=== PATIENT | male | born 1965 | race Caucasian/White ===

== ENCOUNTER 2021-03-05 15:26 | Observation (INO) | payer OTHER ==
[~2021-03-05] VITALS: Ht 175.3 cm; Wt 63.5 kg
[2021-03-05 15:31] VITALS: BP 113/93
--- NOTE | 2021-03-05 16:08 | EKG ---
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
[2021-03-05 16:17] LABS: EOSINOPHILS 0.5 % (0.0-3.0); MCV 77.6 fL (80.0-100.0); RBC 4.23 mil/uL (4.50-6.00); WBC 5.1 thou/uL (4.0-11.0)
[2021-03-05 16:19] LABS: ABSOLUTE NEUTROPHILS 3.7 thou/uL (1.4-8.2); BASOPHILS 1.6 % (0.0-2.0); HEMATOCRIT 32.8 % (42.0-52.0); HEMOGLOBIN 9.9 gm/dL (14.0-18.0); LYMPHOCYTES 19.1 % (24.0-44.0); MCH 23.3 pg (26.0-34.0); MONOCYTES 5.9 % (1.0-8.0); PLATELET COUNT 222 thou/uL (150-400); POLYS 72.9 % (36.0-66.0); RDW 25.7 % (10.5-14.5)
[2021-03-05 16:25] LABS: ANION GAP 7 mmol/L (7-16); BUN 52 mg/dL (7-18); CALCIUM 8.7 mg/dL (8.5-10.1); CHLORIDE 103 mmol/L (98-107); CO2 32 mmol/L (21-32); CREATININE 1.7 mg/dL (0.7-1.3); GLUCOSE 116 mg/dL (74-106); POTASSIUM 3.8 mmol/L (3.5-5.1); SODIUM 142 mmol/L (136-145)
[2021-03-05 16:35] LABS: ALBUMIN 2.8 g/dL (3.4-5.0); SGOT 54 U/L (15-37); SGPT 84 U/L (16-63); TOTAL BILIRUBIN 1.2 mg/dL (0.2-1.0); TOTAL PROTEIN 7.4 g/dL (6.4-8.2); TROPONIN-I <0.06 ng/mL (<0.06)
[2021-03-05 17:07] LABS: POLYCHROMASIA 2+
[2021-03-05 17:08] LABS: ANISOCYTOSIS SLIGHT; SCHISTOCYTES FEW; TARGET CELLS FEW
[2021-03-05 19:08] VITALS: BP 116/88
[2021-03-05 19:30] VITALS: BP 111/88
[2021-03-06 04:00] VITALS: BP 101/79
--- NOTE | 2021-03-06 04:01 | NUR ---
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
[2021-03-06 05:25] LABS: HEMATOCRIT 34.2 % (42.0-52.0); HEMOGLOBIN 10.3 gm/dL (14.0-18.0); MCH 23.4 pg (26.0-34.0); MCHC 30.1 g/dL (28.0-37.0); RBC 4.39 mil/uL (4.50-6.00); RDW 24.9 % (10.5-14.5); WBC 4.3 thou/uL (4.0-11.0)
[2021-03-06 05:31] LABS: CALCIUM 8.2 mg/dL (8.5-10.1); CREATININE 1.7 mg/dL (0.7-1.3)
[2021-03-06 05:42] LABS: URINE BILIRUBIN NEGATIVE (Negative); URINE BLOOD TRACE (Negative); URINE CLARITY CLEAR; URINE COLOR YELLOW; URINE GLUCOSE-RANDOM* NEGATIVE (Negative); URINE KETONES NEGATIVE (Negative); URINE LEUKOCYTES-REFLEX NEGATIVE (Negative); URINE NITRITE-REFLEX NEGATIVE (Negative); URINE PROTEIN (DIPSTICK) NEGATIVE (Negative)
[2021-03-06 06:00] LABS: AMP/METHAMP Negative (Negative); BARBITURATES Negative (Negative); BENZODIAZEPINES Negative (Negative); COCAINE Negative (Negative); METHADONE Negative (Negative); OPIATES Negative (Negative); PCP Negative (Negative)
[2021-03-06 08:00] VITALS: BP 96/68
[2021-03-06] MEDS ORDERED: GABAPENTIN 100100 MG PO (09:44)
[2021-03-06] MEDS ORDERED: LISINOPRIL10 MG PO (09:44)
[2021-03-06] MEDS ORDERED: CARVEDILOL12.5 MG PO (09:44)
[2021-03-06] MEDS ORDERED: IMDUR 30 MG TAB30 M1 PO (09:44)
[2021-03-06] MEDS ORDERED: ELIQUIS5 MG PO (09:44)
--- NOTE | 2021-03-06 09:57 | NUR ---
WOUND CONSULT; HERE TODAY TO ASSESS THE LOWER EXT(S). THE RN TODAY ASSESSMENT REVEALED NO WOUNDS ONLY SCARS. I WILL CANCEL THE CONSULT. RECONSULT IF NECCESSARY. DISCUSSED WITH RN
[2021-03-06 10:31] VITALS: BP 96/68
--- NOTE | 2021-03-06 15:10 | NUR ---
THIS MORNING PATIENT DID NOT COMPLAIN OF ANY PAIN WHEN ASKED, ONLY "UNCOMFORTABLE" TO HIS BLE (PREVIOUS INJURY). I ATTEMPTED TO GIVE PATIENT HIS MORNING MEDICATIONS, WHICH HE ASKED TO TAKE AFTER BREAKFAST. HE APPEARED TO HAVE TAKEN HIS MEDICATIONS. PT LATER DISCOVERED ALL OF THE PILLS SCATTERED IN HIS BED. SHE PLACED THEM ON A NAPKIN AND ALERTED THIS RN. PATIENT THEN PROCEEDED TO THROW AWAY THE MEDICATIONS IN THE TRASH. WHEN QUESTIONED HE DENIED ACTION AND STATED THAT THE OTHER GIRL JUST THREW THEM IN THE TRASH. AFTER THE PHYSICIAN SPOKE WITH HIM ABOUT HIS DISCHARGE (THIS RN WAS PRESENT), PATIENT WAS AGREEABLE. ONCE PHYSICIAN LEFT THE ROOM HE BEGAN TO ARUGE ABOUT HIS DISCHARGE PLAN, STATING HE "STILL HAS SWELLING IN MY LEGS AND CHEST PAIN." HE DID NOT BRING THIS UP WITH THE PHSYCIAN. I EXPLAINED TO THE PHYSICIAN PATIENT'S COMPLAINTS. NO FURTHER ORDERS WERE PLACED AND TO PROCEED WITH DISCHARGE. PATIENT ALL DAY HAS BEEN SLEEPING AND WHEN TALKED TO WOULD APPEAR TO FALL ASLEEP DURING CONVERSATION. NO OBJECTIVE S/S OF PAIN. WHEN HE WOULD OCCASIONALLY COMPLAIN OF CHEST PAIN HE WOULD DECLINE TYLEOL ORDERED BY THE PHYSICIAN. HE STATED THIS MADE IT WORSE AT HOME. I RELAYED INFORMATION TO PHYSICIAN, NO FURTHER ORDERS, PROCEED WITH DISCHARGE. PATIENT REFUSED TO SIGN DISCHARGE PAPERS UNTIL HIS MOTHER ARRIVED TO PROVIDE TRANSPORTATION HOME.
== END 2021-03-06 17:43 | disposition home or self-care (01) ==
LOC: ER 15:26 → 2N 18:42 → EROBS 18:42 → 2N 19:49
PROVIDERS: Emergency Medicine; ADMIT Internal Medicine; ATTEND Internal Medicine
DX: R07.89 Other chest pain (principal); M79.7 Fibromyalgia; I48.0 Paroxysmal atrial fibrillation; I13.0 Hypertensive heart and chronic kidney disease with heart failure and stage 1 through stage 4 chronic kidney disease, or unspecified chronic kidney disease; N18.9 Chronic kidney disease, unspecified; I50.9 Heart failure, unspecified; E78.5 Hyperlipidemia, unspecified; I25.10 Atherosclerotic heart disease of native coronary artery without angina pectoris; I25.2 Old myocardial infarction; G89.29 Other chronic pain; Z79.899 Other long term (current) drug therapy

== ENCOUNTER 2021-04-03 18:50 | Inpatient (IN) | payer OTHER ==
[~2021-04-03] VITALS: Ht 177.8 cm; Wt 62.9 kg
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
[~2021-04-03 18:50] MED LIST: CARVEDILOL12.5 MG PO; ELIQUIS5 MG PO; GABAPENTIN 100100 MG PO; IMDUR 30 MG TAB30 M1 PO; LISINOPRIL10 MG PO
[2021-04-03 18:59] VITALS: BP 110/80
[2021-04-03 19:59] LABS: HEMATOCRIT 30.7 % (42.0-52.0); HEMOGLOBIN 9.5 gm/dL (14.0-18.0); MCH 23.4 pg (26.0-34.0); MCHC 30.8 g/dL (28.0-37.0); PLATELET COUNT 395 thou/uL (150-400); RBC 4.04 mil/uL (4.50-6.00); RDW 25.1 % (10.5-14.5); WBC 6.4 thou/uL (4.0-11.0)
[2021-04-03 20:17] LABS: CALCIUM 8.4 mg/dL (8.5-10.1); CREATININE 1.7 mg/dL (0.7-1.3); POTASSIUM 4.3 mmol/L (3.5-5.1)
[2021-04-03 20:21] LABS: ALBUMIN 2.6 g/dL (3.4-5.0); TOTAL BILIRUBIN 1.2 mg/dL (0.2-1.0); TOTAL PROTEIN 7.6 g/dL (6.4-8.2); TROPONIN-I 0.06 ng/mL (<0.06)
[2021-04-03 20:26] LABS: ABSOLUTE NEUTROPHILS 4.7 thou/uL (1.4-8.2)
[2021-04-03 20:27] LABS: ANISOCYTOSIS 2+; HYPOCHROMASIA 1+
[2021-04-03] MEDS ORDERED: FUROSEMIDE 20 M20 M1 PO (22:44)
[2021-04-04 06:49] VITALS: BP 108/82
--- NOTE | 2021-04-04 07:14 | EKG ---
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: jesusita : 1965 Requested By: Steven Youssef Order Number: [id number] MD: Robby Park Measurements Intervals [place] Rate: 97 P: 75 [place]: 175 QRS: -64 QRSD: 133 T: 115 QT: 393 QTc: 500 Interpretive Statements Sinus rhythm Ventricular premature complex Ventricular preexcitation(WPW) Compared to ECG 03/05/2021 15:31:04 Ventricular premature complex(es) now present Left bundle-branch block no longer present Electronically Signed On 04-04-2021 7:14:17 CDT by Robby Park [email or web address] <ELECTRONICALLY SIGNED> By: Robby Park MD, [facility] 04/04/21713 56 56 Robby Park MD, [facility] /EPI
[2021-04-04 07:30] VITALS: BP 108/82
--- NOTE | 2021-04-04 08:00 | NUR ---
PT ADMITTED TO 3W, ALERT AND ORIENTED, PT EXPRESSES HIS GOAL IS TO GET THE WATER OFF HIS BODY. PT HAS A HARD TIME ANSWERING DIRECT QUESTIONS, HOWEVER PT DOES ANSWER SIMPLE STATEMENT QUESTION, POOR HISTORIAN. MOTHER ALEXI HELPED PT ANSWER ADMISSION QUESTIONS.
[2021-04-04 08:24] VITALS: BP 101/82
[2021-04-04 10:32] LABS: HEMOGLOBIN 9.8 gm/dL (14.0-18.0)
[2021-04-04 10:34] LABS: HEMATOCRIT 32.2 % (42.0-52.0); MCH 23.4 pg (26.0-34.0); MCHC 30.4 g/dL (28.0-37.0); MCV 77.2 fL (80.0-100.0); RBC 4.17 mil/uL (4.50-6.00); RDW 24.8 % (10.5-14.5); WBC 5.3 thou/uL (4.0-11.0)
[2021-04-04 10:45] LABS: ANION GAP 10 mmol/L (7-16); BUN 52 mg/dL (7-18); CALCIUM 8.3 mg/dL (8.5-10.1); CHLORIDE 102 mmol/L (98-107); CO2 28 mmol/L (21-32); GLUCOSE 215 mg/dL (74-106); POTASSIUM 4.5 mmol/L (3.5-5.1); SODIUM 140 mmol/L (136-145); TROPONIN-I 0.06 ng/mL (<0.06)
[2021-04-04 10:56] LABS: CHOLESTEROL 185 mg/dL (<200); HDL CHOLESTEROL 55 mg/dL (>40); LDL CHOLESTEROL 113 mg/dL (<100); TC:HDL 3.4 Ratio (Not establshd); TRIGLYCERIDE 85 mg/dL (<150); VLDL 17 mg/dL (<40)
--- NOTE | 2021-04-04 14:48 | 2DMMODE ---
[address] [address] 2 D/M-MODE ECHOCARDIOGRAM Name: PAM DEGROOT Room #: 363-P ADM IN M.R.#: [id number] Admission: 04/03/21 Attend Phys: Lorenzo Fink MD Discharge: Date of : 67 Report #: [id number] THIS REPORT FOR: cc: FAM - No family physician/PCP FAM - No family physician/PCP Bruno Dockery MD ~ APPROVED REPORT Study performed: 04/04/2021 13:09:50 EXAM: Comprehensive 2D, Doppler, and color-flow Echocardiogram Patient Location: Bedside Room #: 363 Status: routine BSA: 1.76 HR: 88 bpm BP: 101/82 mmHg Rhythm: Atrial Fibrillation Other Information Study Quality: Good Indications Congestive Heart Failure Atrial Fibrillation CAD Cardiomyopathy Chest Pain 2D Dimensions IVC: 35.00 mm Volumes Left Atrial Volume (Systole) LA ESV Index: 71.00 mL/m2 Tricuspid Valve PA Pressure: 47.00 mmHg Left Ventricle Left ventricle is dilated. There is severe global hypokinesis of the left ventricle. There is normal left ventricular wall thickness. Left ventricular ejection fraction is severely decreased. LVEF is 10-15%. Moderate diastolic dysfunction is present (pseudonormal [address] [address] 2 D/M-MODE ECHOCARDIOGRAM Name: PAM DEGROOT Room #: 363-P ADM IN M.R.#: [id number] Admission: 04/03/21 Attend Phys: Lorenzo Fink, Discharge: Date of : 67 Report #: [id number] filling). Right Ventricle Right ventricle is dilated. Right ventricle is hypokinetic. Atria Left atrium is dilated. Right atrium is dilated. Aortic Valve The aortic valve is normal in structure. The Aortic valve is sclerotic. Mild aortic regurgitation. There is no aortic valvular stenosis. Mitral Valve The mitral valve is normal in structure. Moderate to severe mitral regurgitation No evidence of mitral valve stenosis. Tricuspid Valve The tricuspid valve is normal in structure. There is moderate tricuspid regurgitation. Estimated PAP 47 mmHg. There is moderate pulmonary hypertension. Pulmonic Valve The pulmonary valve is normal in structure. Mild pulmonic regurgitation. Great Vessels The aortic root is normal in size. IVC is dilated and collapses <50% with inspiration. Pericardium There is no pericardial effusion. <Conclusion> Left ventricle is dilated. Left ventricular ejection fraction is severely decreased. Right ventricle is dilated. Right ventricle is hypokinetic. Left atrium is dilated. Right atrium is dilated. Mild aortic regurgitation. [facility] [address] [place] [address] 2 D/M-MODE ECHOCARDIOGRAM Name: PAM DEGROOT Room #: 363-P ADM IN M.R.#: [id number] Admission: 04/03/21 Attend Phys: Lorenzo Fink, Discharge: Date of : 67 Report #: [id number] Moderate to severe mitral regurgitation There is moderate tricuspid regurgitation. Estimated PAP 47 mmHg. <ELECTRONICALLY SIGNED> By: Bruno Dockery MD 04/04/21 1447 46 Bruno Dockery MD /INF
[2021-04-04 15:34] VITALS: BP 110/83
[2021-04-04 18:13] LABS: AMP/METHAMP Negative (Negative); BARBITURATES Negative (Negative); BENZODIAZEPINES Negative (Negative); COCAINE Negative (Negative); METHADONE Negative (Negative); OPIATES POSITIVE (Negative); PCP Negative (Negative)
[2021-04-04 19:52] VITALS: BP 104/67
[2021-04-05 08:34] LABS: URINE BILIRUBIN NEGATIVE (Negative); URINE BLOOD NEGATIVE (Negative); URINE CLARITY CLEAR; URINE COLOR YELLOW; URINE GLUCOSE-RANDOM* NEGATIVE (Negative); URINE KETONES NEGATIVE (Negative); URINE LEUKOCYTES NEGATIVE (Negative); URINE NITRITE NEGATIVE (Negative); URINE PROTEIN (DIPSTICK) NEGATIVE (Negative)
[2021-04-05 10:45] LABS: HEMOGLOBIN 8.5 gm/dL (14.0-18.0); WBC 4.8 thou/uL (4.0-11.0)
[2021-04-05 10:47] LABS: HEMATOCRIT 28.4 % (42.0-52.0); MCH 23.3 pg (26.0-34.0); MCV 77.5 fL (80.0-100.0); RBC 3.67 mil/uL (4.50-6.00); RDW 24.9 % (10.5-14.5)
[2021-04-05 11:33] LABS: CALCIUM 8.3 mg/dL (8.5-10.1); CREATININE 2.1 mg/dL (0.7-1.3); MAGNESIUM 2.5 mg/dL (1.8-2.4); POTASSIUM 4.3 mmol/L (3.5-5.1)
[2021-04-05 11:36] VITALS: BP 95/61
--- NOTE | 2021-04-05 13:35 | NUR ---
INITIAL ASSESSMENT: SW reviewed chart and spoke with nursing and attending physician. Pt was admitted from home due to chest pain. Pt is on IV abx and IV lasix. SW met with pt at bedside. Introduced role of SW. Pt is alert/orientated x 4. Pt reports he lives at home with his Mother in [place]. Prior to admission, pt was independent with ADLs. Pt has a cane and walker to use. 5 steps to enter the home and 5 steps inside. Pt states that he and his mother help take care of each other. Pt states that he has lost weight and has become weak. Pt's PCP is Dr. Rosamaria Tellez. No hx of services or post-acute placement. Pt states that he is interested in rehab, to regain strength. Pt is hoping to be able to return to work in the future. SW discussed options for rehab. Pt agreeable with [facility]. SW notified [facility] rehabilitation services coordinator of new referral. SW is following to assist as needed with discharge planning.
[2021-04-05 15:46] VITALS: BP 110/76
--- NOTE | 2021-04-05 18:20 | NUR ---
RN ASSUMED PT'S CARE AT 0700AM.PT IS A&OX3 ( PERSON, PLACE AND TIME ), PT IS ON ROOM AIR , PT'S VS ARE STABLE AT DAY SHIFT, PT IS CONTINUING IV ABX, PT DENIES PAIN AND SOB BY THIS TIME.PT GETS UP TO CHAIR WITH ASSIST ,
[2021-04-05 21:11] VITALS: BP 104/63
[2021-04-06 00:06] LABS: HIV ANTIBODY Non Reactive (Non Reactive)
[2021-04-06 04:16] VITALS: BP 100/73
[2021-04-06 06:11] LABS: HEMATOCRIT 28.5 % (42.0-52.0); HEMOGLOBIN 8.8 gm/dL (14.0-18.0); MCH 23.8 pg (26.0-34.0); MCHC 30.8 g/dL (28.0-37.0); MCV 77.3 fL (80.0-100.0); RBC 3.69 mil/uL (4.50-6.00); RDW 24.2 % (10.5-14.5); WBC 4.7 thou/uL (4.0-11.0)
--- NOTE | 2021-04-06 06:27 | NUR ---
Pt. slept fair during the night. Woke up around 0100 and wanted to walk around. Ambulated with assist to bathroom. Tolerating room air well. Denies any pain. Requested for turkey sandwich this am. Voided per urinal. Bed alarm on for safety. Pt. is impulsive.
[2021-04-06 06:28] LABS: MAGNESIUM 2.4 mg/dL (1.8-2.4); POTASSIUM 3.8 mmol/L (3.5-5.1)
[2021-04-06 07:34] VITALS: BP 104/66
--- NOTE | 2021-04-06 11:01 | NUR ---
DISCHARGE NOTE: KARINA reviewed chart and spoke with nursing and attending physician. Pt is on IV abx and IV lasix. SW discussed case with [facility] facility rehab director who states they are able to accept pt today. Auth obtained from [place]. Repeat COVID test ordered. Attending physician to complete discharge orders/summary. Pt to move to [facility] pending COVID test results. KARINA is following to finalize discharge.
[2021-04-06] MEDS ORDERED: TORSEMIDE20 MG PO (13:47)
[2021-04-06] MEDS ORDERED: UNASYN 3 GM VIAL3 G1 IM (13:49)
[2021-04-06 14:24] VITALS: BP 104/66
--- NOTE | 2021-04-06 20:02 | NUR ---
RN ASSUMED PT'S CARE AT 0700-1600PM, PT IS A&OX4, PT IS CONTINUING IV ABX, PT'S VS ARE STABLE, PT DENIES PAIN AND SOB, BUT PT STILL HAS WEALNESS, RN RECEIVED ORDER TO DC PT TO [facility] , RN HAS GIVING REPORT , PT WAS SENT TO [facility] ABOUT 1550PM.
[2021-04-06 21:06] LABS: SYPHILIS AB Non Reactive (Non Reactive)
[2021-04-08 04:50] LABS: T-SPOT.TB Negative
== END 2021-04-06 15:44 | DRG 291 ==
LOC: ER 18:50 → 3W 22:14 → EROBS 22:14 → 3W 04-04 07:57
PROVIDERS: Emergency Medicine; Nurse Practitioner; Specialist; ADMIT Internal Medicine; ATTEND Internal Medicine
DX: I13.0 Hypertensive heart and chronic kidney disease with heart failure and stage 1 through stage 4 chronic kidney disease, or unspecified chronic kidney disease (principal); J18.9 Pneumonia, unspecified organism; I50.23 Acute on chronic systolic (congestive) heart failure; N17.9 Acute kidney failure, unspecified; G89.29 Other chronic pain; I48.0 Paroxysmal atrial fibrillation; I25.10 Atherosclerotic heart disease of native coronary artery without angina pectoris; N18.9 Chronic kidney disease, unspecified; I25.5 Ischemic cardiomyopathy; M21.371 Foot drop, right foot; M21.331 Wrist drop, right wrist; E78.5 Hyperlipidemia, unspecified; M79.7 Fibromyalgia; I34.0 Nonrheumatic mitral (valve) insufficiency; D64.9 Anemia, unspecified; R53.81 Other malaise; Z82.49 Family history of ischemic heart disease and other diseases of the circulatory system; Z91.14 Patient's other noncompliance with medication regimen; Z86.73 Personal history of transient ischemic attack (TIA), and cerebral infarction without residual deficits; I25.2 Old myocardial infarction; Z20.822 Contact with and (suspected) exposure to COVID-19
CPT/HCPCS: 10080

== ENCOUNTER 2021-04-06 11:31 | Inpatient (IN) | payer OTHER ==
[~2021-04-06] VITALS: Ht 175.3 cm; Wt 64.4 kg
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
[~2021-04-06 11:31] MED LIST changes: +FUROSEMIDE 20 M20 M1 PO
[2021-04-06] MEDS ORDERED: TORSEMIDE20 MG PO (13:47)
[2021-04-06] MEDS ORDERED: UNASYN 3 GM VIAL3 G1 IM (13:49)
[2021-04-06 15:45] VITALS: BP 112/83
--- NOTE | 2021-04-06 15:45 | NUR ---
Chart review. Cm tried to visit with him prior to going up to acute rehab this afternoon, unable to visit with him on 3w r/t he is resting. He lives at home with his mom shy, they help each other if needed. 5 steps to enter the home, no stairs inside must do. manage own medication. Has cane and walker. No rehab or hh in past. PCP Dr Rosamaria Tellez. Will cont. following as needed for dc needs from acute rehab.
--- NOTE | 2021-04-06 18:20 | NUR ---
Pt arrived to floor from 3west per at 1545 in stable condition.Admission hx,assessment and careplan completed.Evening meds given as ordered and well tolerated.Pt ate 100% at dinner.Pt's mom called but phone not going through. Pt sined amanda admission papers.Will continue to monitor.
[2021-04-06 20:06] VITALS: BP 117/77
[2021-04-07 06:05] LABS: MCV 77.3 fL (80.0-100.0)
[2021-04-07 06:07] LABS: HEMATOCRIT 29.4 % (42.0-52.0); MCH 23.6 pg (26.0-34.0); MCHC 30.5 g/dL (28.0-37.0); RBC 3.81 mil/uL (4.50-6.00); RDW 25.1 % (10.5-14.5); WBC 4.9 thou/uL (4.0-11.0)
[2021-04-07 06:21] LABS: CREATININE 1.9 mg/dL (0.7-1.3); POTASSIUM 3.8 mmol/L (3.5-5.1)
[2021-04-07 06:47] LABS: FOLIC ACID 14.6 ng/mL (8.6-58.9)
[2021-04-07 08:00] VITALS: BP 127/92
--- NOTE | 2021-04-07 17:40 | NUR ---
ASSUMED CARE AT 0700. ALERT AND ORIENTATED X 4. DENIES ANY PAIN. UP WITH MOD ASSIST USING THE WALKER. DIURESING ADEQ. LAST BM 04/06. APPETITE GOOD. 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 GIVEN IV UNASYN. PARTICIPATED WITH THERAPY AND PROGRESSING TOWARDS GOAL. TOLERATING MEDS WITH WATER. CONT TO MONITOR.
[2021-04-07 20:07] VITALS: BP 108/72
--- NOTE | 2021-04-07 23:42 | NUR ---
PT ASSESSMENT COMPLETED AND VSS. MEDS GIVEN ORDERED AND WELL TOLERATED. FALL PRECAUTIONS IN PLACE. IV ANTIBIOTICS GIVEN ORDERED. ASST WITH REPOSITION FOR COMFORT. UP TO THE BATHROOM WITH ASST/GAIT/WALKER. SAT WNL ON RA. SLEEPING WELL. WILL CONTINUE TO MONITOR FREQUENTLY.
[2021-04-08 07:27] VITALS: BP 117/88
--- NOTE | 2021-04-08 14:14 | NUR ---
ASSUMED CARE AT 0700. ALERT AND ORIENTATED X 3. REPORTED HAVING TUMMY UPSET DUE TO GETTING HIS 0600 MEDS ON AN EMPTY STOMACH. HE HAD LOOSE SOFT STOOL TODAY AND WAS UNHAPPY TO GET HIMSELF SOILED. UP WITH SBA TO BATHROOM. DIURESING ADEQ. APPETITE GOOD. PARTICIPATED WITH THERAPY AND PROGRESSING TOWARDS GOAL. IV UNASYN GIVEN SCHEDULED.
[2021-04-08 19:28] VITALS: BP 119/70
--- NOTE | 2021-04-09 00:15 | NUR ---
PT ALERT AND ORIENTED X 3. RIGHT SIDED WEAKNESS FROM OLD CVA. LFA SL INFILTRATED. NEW SALINE LOCK INSERTED IN RFA. PT INCONT OF URINE AND STOOL. PT REFUSED GABAPENTIN AT HS. STATED IT MAKES HIM CONFUSED. PT CALLS OUT FREQUENTLY FOR VARIOUS THINGS. REQUIRES A LOT OF ATTENTION. BED ALARM ON FOR SAFETY. PT HAS BEEN AWAKE ALL NIGHT SO FAR.
[2021-04-09 07:15] VITALS: BP 112/93
--- NOTE | 2021-04-09 13:23 | NUR ---
Nutrition: pt admitted with chest pain, cavitary PNA and late effect CVA with residual right hemiparesis. RD received consult stating poor intake. Pt is eating most of all meals and good appetite is documented by nsg. No recent weight loss. Vitamin D status pending. Obtained food preferences and instructed pt on meal ordering as desired. Low nutrition risk.
--- NOTE | 2021-04-09 13:44 | NUR ---
ASSUMED CARE AT 0700. DID NOT SLEEP TOO WELL LAST NIGHT. ALERT AND ORIENTATED X 3. PT HAS QUESTIONS AND CONCERNS REGARDING BP MEDS, EDUCATION GIVEN. DENIES ANY PAIN. 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 SPOKE TO JAMES JONES REGARDING INSOMNIA AND PT REFUSING TO TAKE HIS GABAPENTIN THIS MORNING. PARTICIPATING WITH THERAPY. GIVEN IV ANTIBIOTICS SCHEDULED.
[2021-04-09 19:45] VITALS: BP 122/94
--- NOTE | 2021-04-09 23:48 | NUR ---
PT ALERT AND ORIENTED X 4. AMB TO BR WITH WALKER AND ASSIST X 1. HAVING LOOSE STOOLS. PT STATED HE HAS HAD 4 LOOSE STOOLS TODAY. RFA SL INTACT AND PATENT. PT C/O STOMACH DISCOMFORT. BED ALARM ON FOR SAFETY. PT CHECKED ON HOURLY ROUNDS.
[2021-04-10 08:25] VITALS: BP 120/87
--- NOTE | 2021-04-10 11:45 | NUR ---
PT ALERT AND ORIENTED TIMES FOUR. VSS. PT DENIES PAIN/SOA. PT WORKED WELL WITH PT/OT TODAY. PT TOLERATES MEDS AND MEALS. PT MOM AT BESIDE THIS MORNING. PT SLOWLY PROGRESSING TOWRADS POC GOALS.
--- NOTE | 2021-04-10 13:26 | NUR ---
Team meeting, recommendation: EF 10% noted per chart. S/S of anxiety and depression reported from neuropsychic. 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 Will sometimes refuse to take his medication. needs right AFO, spinning frame changer to eval. Need assist with medication and finances. DC 04/13/21 nurse only r/t Medicaid. [facility] will start soon after dc home.
[2021-04-10 19:19] VITALS: BP 110/74
--- NOTE | 2021-04-11 02:39 | NUR ---
ASSESSMENT: PT REMAIN ALERT AND ORIENT TIMES FOUR. C/O NOT BEING ABLE TO USE THE URINAL IN BED AND A NEED TO STAND ON THE SIDE OF THE BED WITH WALKER TO URINATE. UP WITH ASSISTANCE TIMES TWO TO THE BR. NO BM THIS SHIFT. VSS, AFEBRILE. RIGHT HAND WEAK. SLOW PROGRESS TOWARDS DC GOALS, WILL CONTINUE TO MONITOR.
--- NOTE | 2021-04-11 15:53 | NUR ---
Message left for pt's mother Regine regarding pt's need for assist with medications/finances at dc. [facility] contacted to see if the pt is on service with them and will need a request for increased [facility] hours or if he is a new referral.
--- NOTE | 2021-04-11 16:21 | NUR ---
PT RESTING IN BED FOR MAJORITY OF SHIFT. HALF-HEARTEDLY WORKED WITH PT/OT. PT CONTINUES TO REFUSE MEDS/TREATMENTS AND BE ARGUMENTATIVE AND AGITATED WITH STAFF. PT AFEBRILE, ADEQUATE UOP, NO BM, APROPRIATE APPETITE (NEW ORDERS GIVEN FROM DIETARY). PT AND MOTHER HAVE BEEN THOUROUGHLY UPDATED AND EDUCATED ON PT CONDITION AND POC. PT SLOWLY PROGRESSING TOWARDS POC.
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
[2021-04-11 18:16] VITALS: BP 113/77
--- NOTE | 2021-04-12 02:22 | NUR ---
ASSUMED CARE AT 1900 OF 04/11. PATIENT IS A&OX4. CONTINUES TO BE ARGUMENTATIVE W/ STAFF. REQUESTED FOR HS PILLS TO BE ADMINISTERED EARLY SO HE CAN GOT TO BED EARLY. PERIPHERAL IV WAS DISCONTINUED DURING DAY SHIFT, NOW RECEIVING ORAL ANTIBIOTIC. RECEIVED SECOND DOSE OF ORAL ANTIBIOTICS DURING THIS SHIFT. NO S/S OF ADVERSE REACTION TO MEDICATION REPORTED OR NOTED.CURRENTLY SLEEPING IN BED, BED ALARM ON AND CALL LIGHT W/IN REACH. WILL CONTINUE TO MONITOR.
[2021-04-12 06:07] VITALS: BP 109/75
--- NOTE | 2021-04-12 08:18 | NUR ---
PT CRYING THIS AM AND STATED HIS BACK, ARMS, AND RT CHEST HURTS TODAY. PT STATED THE PAIN FEELS LIKE A CRAMPING. PT STATED HE WORKED TOO HARD YESTERDAY. PT WORKING WITH OT AND THEN ST. PT DIDN'T WANT TO DO ANYMORE THERAPY DUE TO HAVING PAIN AND FEELING TIRED. PT STATED HE HAS BEEN HURTING SINCE YEARLY THIS AM AND GOT UP AND DIDN'T GET MUCH SLEEP AND HE STATED HE NEEDS TO SLEEP. PT STATED THE PAIN FEELS LIKE SOMEONE IS BEATING HIS BACK WITH A BAT AND HE WANTED A MESSAGE. THIS INSURANCE CLAIMS PROCESSOR GAVE HIM A SMALL MESSAGE TO RT SHOULDER AREA. ADM TORSEMIDE 20MG PO FOR COMPLAINTS OF SWELLING TO HIS ABD AND ALSO PT HAS TRACE EDEMA TO HIS FEET. PT WANTS SOMEONE TO CLIP HIS TOENAILS AND FINGER NAILS. PT FINGER NAILS DOESN'T NEED TRIMMED. PT HAS BRIEF ON. PT DID EAT 100% OF BREAKFAST AND STATED THAT IT WAS GOOD. PT STATED HE WANTED TO TAKE HIS ELIQUIS RIGHT NOW TO HELP PREVENT BLOOD CLOTS.
--- NOTE | 2021-04-12 09:00 | NUR ---
PT UP TO BATHROOM AND HAD A SOFT STOOL. PT WANTING TO PUT LOTION ON HIS BUTTOCKS FROM SCRATCHING. APPLIED LOTION TO BACK. MENTIONED TO PT WE WILL GET HIM SOMETHING FOR PAIN, HE STATED TYLENOL DID HELP, BUT HE STATED HE WILL TAKE A ASA 81MG FOR PAIN. PT REFUSED TYLENOL THIS AM. TOLD ZAID JONES THAT HE DIDN'T HAVE ANYTHING FOR PAIN. PT ALSO REFUSED AM LABS THIS AM.
--- NOTE | 2021-04-12 12:21 | NUR ---
PT ALLOWED LAB TO COME IN AND DRAW HIS BLOOD.
[2021-04-12 12:36] LABS: HEMATOCRIT 31.4 % (42.0-52.0); HEMOGLOBIN 9.4 gm/dL (14.0-18.0); MCH 23.2 pg (26.0-34.0); MCHC 29.9 g/dL (28.0-37.0); MCV 77.8 fL (80.0-100.0); RBC 4.04 mil/uL (4.50-6.00); RDW 25.1 % (10.5-14.5); WBC 7.7 thou/uL (4.0-11.0)
--- NOTE | 2021-04-12 12:45 | NUR ---
ADM DIFLOFENAC CREAM TO BACK FOR PAIN. PT BEGGING FOR SOMEONE TO RUB HIS BACK. RUBBED HIS BACK TO RT SIDE. PT ASKING FOR APPLEJUICE.
[2021-04-12 12:47] LABS: CALCIUM 7.8 mg/dL (8.5-10.1); CREATININE 1.7 mg/dL (0.7-1.3); MAGNESIUM 2.3 mg/dL (1.8-2.4); POTASSIUM 4.3 mmol/L (3.5-5.1)
--- NOTE | 2021-04-12 13:15 | NUR ---
PUT AQUA K PAD AT BEDSIDE STARTING UP THE MACHINE FOR HEATING.
[2021-04-12 13:39] LABS: ABSOLUTE NEUTROPHILS 6.7 thou/uL (1.4-8.2); LARGE PLATELETS OCCASIONAL; METAMYELOCYTES 1 %
[2021-04-12 13:40] LABS: POLYCHROMASIA 1+
[2021-04-12 13:41] LABS: ANISOCYTOSIS 2+; HYPOCHROMASIA 2+; MACROCYTES 1+
[2021-04-12 13:42] LABS: PLATELET ESTIMATE NORMAL
--- NOTE | 2021-04-12 14:02 | NUR ---
Cm tried to reach [facility], unable to reach anyone. Hussain spoke with his mom shy via phone call, active listen, she was tearful and cont to thank everyone for giving him help he needed for rehab, ie dr, nurse, pulp cooker, and rehab per dl. She passed on that zoey brother went through class at [facility] to be able to help him at home also. Number for [facility] [phone], will send updated information at [place] 04/13/21. His mom will be here around 1400 tomorrow to pick him up.
[2021-04-12 14:23] LABS: PLATELET COUNT 327 thou/uL (150-400)
[2021-04-12 21:12] VITALS: BP 107/76
--- NOTE | 2021-04-12 23:57 | NUR ---
PT ALERT AND ORIENTED X 4. VERY IRRITABLE AND IMPULSIVE TONIGHT. GOING BACK AND FORTH FROM BED TO CHAIR. INSTRUCTED REPEATEDLY TO CALL FOR ASSISTANCE WHEN GETTING UP. UNSTEADY GAIT WITH RIGHT SIDED WEAKNESS. PT C/O PAIN IN HIS ARMS AND BACK. REFUSES ANY PAIN MEDS. CALLS OUT FREQUENTLY FOR VARIOUS THINGS. PT REQUIRES A LOT OF ATTENTION. BED AND CHAIR ALARMS USED FOR SAFETY. PT CHECKED ON MORE FREQUENTLY THAN HOURLY ROUNDS.
[2021-04-13 08:00] VITALS: BP 106/71
--- NOTE | 2021-04-13 09:15 | NUR ---
ASSUMED CARE AT 0700. PT DID NOT SLEEP TOO WELL. REPORTED GENERALIZED PAIN AT NIGHT BUT REFUSED TO TAKE ANY PAIN MEDS. HE WAS AGITATED AND IMPULSIVE PER NOC RN. THIS MORNING PT WAS CALMER AND WAS SITTING ON THE RECLINER. REPORTED CHRONIC PAIN IN HIS R ARM POST CVA. UP WITH SBA. PARTICIPATED WITH THERAPY THIS MORNING. PLAN FOR DC HOME TODAY WITH HH. DR MASTERSON NOTIFIED REGARDING DC AND MEDS TO RECONCILE.
[2021-04-13] MEDS ORDERED: AMOX TR-K CLV1 EAC4 PO (11:40)
[2021-04-13 11:50] VITALS: BP 106/71
== END 2021-04-13 16:32 | disposition home health service (06) | DRG 947 ==
PROVIDERS: Nurse Practitioner Family; Specialist; ADMIT Physical Medicine & Rehabilitation; ATTEND Physical Medicine & Rehabilitation
DX: R53.81 Other malaise (principal); I50.23 Acute on chronic systolic (congestive) heart failure; J18.9 Pneumonia, unspecified organism; I13.0 Hypertensive heart and chronic kidney disease with heart failure and stage 1 through stage 4 chronic kidney disease, or unspecified chronic kidney disease; N17.9 Acute kidney failure, unspecified; I69.351 Hemiplegia and hemiparesis following cerebral infarction affecting right dominant side; M79.7 Fibromyalgia; R07.89 Other chest pain; I25.10 Atherosclerotic heart disease of native coronary artery without angina pectoris; N18.9 Chronic kidney disease, unspecified; G89.29 Other chronic pain; I25.5 Ischemic cardiomyopathy; I48.0 Paroxysmal atrial fibrillation; E78.5 Hyperlipidemia, unspecified; D64.9 Anemia, unspecified; F01.50 Vascular dementia, unspecified severity, without behavioral disturbance, psychotic disturbance, mood disturbance, and anxiety; F41.9 Anxiety disorder, unspecified; F32.9 Major depressive disorder, single episode, unspecified; I34.0 Nonrheumatic mitral (valve) insufficiency; M21.331 Wrist drop, right wrist; Z91.14 Patient's other noncompliance with medication regimen; I25.2 Old myocardial infarction; Z79.01 Long term (current) use of anticoagulants
CPT/HCPCS: 10112

== ENCOUNTER 2021-09-02 14:12 | Inpatient (IN) | payer OTHER ==
[~2021-09-02] VITALS: Ht 175.3 cm; Wt 67.7 kg
[~2021-09-02 14:12] MED LIST changes: +AMOX TR-K CLV1 EAC4 PO; +TORSEMIDE20 MG PO; +UNASYN 3 GM VIAL3 G1 IM
[2021-09-02 14:13] VITALS: BP 121/98
[2021-09-02 14:40] LABS: HEMOGLOBIN 9.8 gm/dL (14.0-18.0); WBC 6.4 thou/uL (4.0-11.0)
[2021-09-02 14:42] LABS: HEMATOCRIT 34.1 % (42.0-52.0); MCH 22.3 pg (26.0-34.0); MCHC 28.9 g/dL (28.0-37.0); MCV 77.3 fL (80.0-100.0); RBC 4.41 mil/uL (4.50-6.00); RDW 24.7 % (10.5-14.5)
[2021-09-02 14:49] LABS: CALCIUM 8.6 mg/dL (8.5-10.1); CREATININE 2.8 mg/dL (0.7-1.3); POTASSIUM 4.3 mmol/L (3.5-5.1)
[2021-09-02 14:59] LABS: ALBUMIN 2.8 g/dL (3.4-5.0); TOTAL BILIRUBIN 4.4 mg/dL (0.2-1.0)
[2021-09-02 15:48] LABS: ABSOLUTE NEUTROPHILS 4.2 thou/uL (1.4-8.2)
[2021-09-02 16:03] LABS: PLATELET COUNT 112 thou/uL (150-400)
[2021-09-02 16:52] VITALS: BP 118/95
[2021-09-02 17:21] VITALS: BP 118/92
[2021-09-02 17:56] VITALS: BP 124/97
[2021-09-02 19:08] VITALS: BP 114/91
[2021-09-02 22:28] LABS: URINE BILIRUBIN 1+ (Negative); URINE BLOOD 3+ (Negative); URINE CLARITY CLEAR; URINE COLOR YELLOW; URINE GLUCOSE-RANDOM* NEGATIVE (Negative); URINE KETONES NEGATIVE (Negative); URINE LEUKOCYTES-REFLEX NEGATIVE (Negative); URINE NITRITE-REFLEX NEGATIVE (Negative); URINE PROTEIN (DIPSTICK) NEGATIVE (Negative); URINE SPECIFIC GRAVITY 1.025 (1.005-1.035)
[2021-09-02 22:37] LABS: AMP/METHAMP Negative (Negative); BARBITURATES Negative (Negative); BENZODIAZEPINES Negative (Negative); COCAINE Negative (Negative); METHADONE Negative (Negative); OPIATES Negative (Negative); PCP Negative (Negative)
[2021-09-02 22:46] LABS: APTT 36.8 Seconds (24.5-32.8); INR 2.07; PROTIME 21.8 Seconds (10.5-12.1)
[2021-09-02 23:17] LABS: BACTERIA-REFLEX 1-9 Few /HPF (None Seen); CELLULAR CASTS 0-3 Few /LPF (None Seen); CRYSTALS None Seen /LPF (None Seen); HYALINE CASTS 0-3 Few /LPF (None Seen); MUCUS 4-6 Moderate strn/LPF (None Seen); SQUAMOUS 0-3 Few /LPF (0-3); URINE WBC-REFLEX 0-5 Rare /HPF (0-5)
[2021-09-03 01:26] LABS: HEMOGLOBIN 8.5 gm/dL (14.0-18.0)
[2021-09-03 01:29] LABS: HEMATOCRIT 29.5 % (42.0-52.0); MCH 22.4 pg (26.0-34.0); MCHC 28.9 g/dL (28.0-37.0); MCV 77.5 fL (80.0-100.0); RBC 3.81 mil/uL (4.50-6.00); RDW 25.1 % (10.5-14.5)
[2021-09-03 01:31] LABS: CALCIUM 7.8 mg/dL (8.5-10.1); CREATININE 2.7 mg/dL (0.7-1.3)
[2021-09-03 03:30] VITALS: BP 120/93
--- NOTE | 2021-09-03 06:20 | NUR ---
PT MEDICAL RECORDS FROM [facility] PLACED IN CHART. [place]YCH [place] [facility] [place] IS DELUSIONAL AND HAS UNSPECIFIED PSYCHOSIS. DISCHARGE NOTE FROM PHYSICIAN IS ON FRONT OF CHART FROM 08/02. PT FROM HOME AND ARRIVED VIA EMS. MOTHER OF PT STATES "HE CAN NOT RETURN HOME." PLACED EXTERNAL CATH DUE TO IMMOBILITY AND WEAKNESS. LACTIC ACID CRITICAL AT 4.6. GAVE 500ML AT 80ML/HR DUE TO EF AND CKD, REDRAW OF LACTIC WAS 1.7. MULTIPLE ATTEMPTS TO GIVE PT ORAL AC MEDICATION AND HE WOULD SPIT IT OUT. HX SHOWS NON COMPLIANCE WITH MEDS. PSYCH [place] [facility] IS DELUSIONAL AND UNSPECIFIED PSYCHOSIS.
[2021-09-03 07:28] VITALS: BP 140/40
[2021-09-03 07:33] VITALS: BP 88/67
--- NOTE | 2021-09-03 07:40 | EKG ---
[address] [address] ELECTROCARDIOGRAM REPORT Name: PAM DEGROOT Room #: 363-P ADM IN M.R.#: [id number] Admission: 09/02/21 Attend Phys: Frankie Espinoza MD Discharge: Date of : 67 Report #: [id number] [facility] ED Test Date: 2021-09-02 Test Time: 14:21:09 Pat Name: PAM DEGROOT Department: Room: 363 P Gender: M Clamp Operator: MONTY : 1965 Requested By: Diana Serrano Order Number: [id number] MD: Robby Park Measurements Intervals [place] Rate: 89 P: 78 CO: 194 QRS: -64 QRSD: 159 T: 105 QT: 445 QTc: 542 Interpretive Statements Sinus rhythm Ventricular premature complex Probable left atrial enlargement Nonspecific IVCD with LAD LVH with secondary repolarization abnormality Compared to ECG 04/03/2021 18:57:47 Intraventricular conduction delay now present Left ventricular hypertrophy now present Early repolarization now present Electronically Signed On 09-03-2021 7:39:56 PAINT DIPPER by Robby Park [email or web address] <ELECTRONICALLY SIGNED> By: Robby Park MD, FACC 09/03/21 0739 142 142 Robby Park MD, FAC /EPI
--- NOTE | 2021-09-03 07:40 | EKG ---
[facility] [place] [address] ELECTROCARDIOGRAM REPORT Name: PAM DEGROOT Room #: 363-P ADM IN M.R.#: [id number] Admission: 09/02/21 Attend Phys: Frankie Espinoza MD Discharge: Date of : 67 Report #: [id number] [facility] ED Test Date: 2021-09-02 Test Time: 17:07:32 Pat Name: PAM DEGROOT Department: Room: 363 Gender: M Mathematics Improvement Teacher: dionne : 1965 Requested By: Diana Serrano Order Number: [id number] MD: Robby Park Measurements Intervals [place] Rate: 86 P: 79 UT: 200 QRS: -64 QRSD: 146 T: 101 QT: 440 QTc: 527 Interpretive Statements Sinus rhythm Ventricular premature complex Probable left atrial enlargement Nonspecific IVCD with LAD Anterior Q waves, possibly due to LVH Compared to ECG 09/02/2021 14:21:09 No significant change Electronically Signed On 09-03-2021 7:40:21 MANAGER UTILIZATION MANAGEMENT by Robby Park [email or web address] <ELECTRONICALLY SIGNED> By: Robby Park MD, [facility] 09/03/21 0740 06 06 Robby Park MD, FAC /EPI
[2021-09-03 11:27] VITALS: BP 102/71
--- NOTE | 2021-09-03 11:42 | 2DMMODE ---
[facility] [address] [place] [address] 2 D/M-MODE ECHOCARDIOGRAM Name: PAM DEGROOT Room #: 363-P ADM IN M.R.#: [id number] Admission: 09/02/21 Attend Phys: Frankie Espinoza MD Discharge: Date of : 67 Report #: [id number] THIS REPORT FOR: cc: BELEN - No family physician/PCP FAM - No family physician/PCP Grover Leiva MD ~ APPROVED REPORT Study performed: 09/03/2021 09:31:06 EXAM: Comprehensive 2D, Doppler, and color-flow Echocardiogram Patient Location: Bedside Room #: 363 Status: routine BSA: 1.78 HR: 59 bpm BP: 87/67 mmHg Rhythm: Bradycardia Other Information Study Quality: Good Indications Congestive Heart Failure Cardiomyopathy Hypertension/HDD 2D Dimensions RVDd: 55.99 mm IVSd: 10.70 (7-11mm) LVOT Diam: 19.53 (18-24mm) LVDd: 73.58 mm PWd: 11.21 (7-11mm) Ascending Ao: 31.46 (22-36mm) LVDs: 70.10 (25-40mm) Left Atrium: 55.60 (27-40mm) Aortic Root: 37.65 mm IVC: 35.00 mm Volumes Left Atrial Volume (Systole) Single Plane 4CH: 194.40 mL Single Plane 2CH: 193.74 mL LA ESV Index: 119.00 mL/m2 Aortic Valve AoV Peak Loc.: 0.76 m/s AO Peak Gr.: 2.32 mmHg LVOT Max P.41 mmHg [facility] [address] [place] [address] 2 D/M-MODE ECHOCARDIOGRAM Name: PAM DEGROOT Room #: 363-P [facility].#: [id number] Admission: 09/02/21 Attend Phys: Frankie Espinoza MD Discharge: Date of : 67 Report #: [id number] LVOT Max V: 0.59 m/s JOSE Vmax: 2.34 cm2 Mitral Valve E/A Ratio: 2.5 MV Decel. Time: 133.94 ms MV E Max Loc.: 0.88 m/s MV A Loc.: 0.35 m/s MV PHT: 38.84 ms IVRT: 96.89 ms Pulmonary Valve PV Peak Loc.: 0.66 m/s PV Peak Gr.: 1.76 mmHg Pulmonary Vein P Vein S: 0.13 m/s P Vein A: 0.11 m/s P Vein D: 0.21 m/s P Vein A Dur.: 78.4 msec P Vein S/D Ratio: 0.62 Tricuspid Valve TR Peak Loc.: 2.79 m/s TR Peak Gr.: 31.16 mmHg PA Pressure: 46.00 mmHg Left Ventricle Left ventricle is dilated. There is severe global hypokinesis of the left ventricle. There is normal left ventricular wall thickness. Left ventricular ejection fraction is severely decreased. LVEF is 10-15%. Grade IV - fixed restrictive diastolic dysfunction. Right Ventricle Right ventricle is dilated. Right ventricle is hypokinetic. Atria Left atrium is dilated. Right atrium is dilated. Aortic Valve The aortic valve is normal in structure. Mild aortic regurgitation. There is no aortic valvular stenosis. Mitral Valve The mitral valve is normal in structure. Severe mitral regurgitation. No evidence of mitral valve stenosis. Tricuspid Valve [facility] [place] [address] 2 D/M-MODE ECHOCARDIOGRAM Name: PAM DEGROOT Room #: 363-P ADM IN .R.#: [id number] Admission: 09/02/21 Attend Phys: Frankie Espinoza MD Discharge: Date of : 67 Report #: [id number] The tricuspid valve is normal in structure. There is mild tricuspid regurgitation. Estimated PAP 46 mmHg. There is moderate pulmonary hypertension. Pulmonic Valve The pulmonary valve is normal in structure. Mild pulmonic regurgitation. Great Vessels The aortic root is normal in size. The inferior vena cava is dilated with no inspiratory collapse. Pericardium There is no pericardial effusion. <Conclusion> Left ventricle is dilated. There is severe global hypokinesis of the left ventricle. LVEF is 10-15%. Right ventricle is dilated. Right ventricle is hypokinetic. Left atrium is dilated. Right atrium is dilated. The aortic valve is normal in structure. Mild aortic regurgitation. The mitral valve is normal in structure. Severe mitral regurgitation. The tricuspid valve is normal in structure. There is mild tricuspid regurgitation. Estimated PAP 46 mmHg. There is moderate pulmonary hypertension. The pulmonary valve is normal in structure. Mild pulmonic regurgitation. The aortic root is normal in size. There is no pericardial effusion. <ELECTRONICALLY SIGNED> By: Grover Leiva MD 09/03/21 1142 1142 114 Grover Leiva MD /INF
[2021-09-03 15:24] VITALS: BP 110/78
[2021-09-03 19:21] VITALS: BP 105/83
--- NOTE | 2021-09-03 19:55 | NUR ---
RN ASSUMED PT'S CARE AT 0700-1900PM, PT IS A&OX3 ( PERSON, PLACE AND TIME), PT'S VS ARE STABLE AT DAY SHIFT, RN HAS REPORTED TO DR ABOUT PT REFUSED CHEST CT SCAN AND MEDICATIONS.PSYCHIATRY DR HAS CONSULT.
--- NOTE | 2021-09-04 01:27 | NUR ---
PT IS A&OX3 WITH SOME CONFUSION NOTED. PT DOES NOT ALWAYS RESPOND APPROPRIATELY TO QUESTIONS, AND DOES NOT FOLLOW DIRECTIONS WELL. PT WITH EXTERNAL CATHETER IN PLACE PER HIS REQUEST. PT IS IMPULSIVE AND DOES NOT KNOW HIS LIMITATIONS. BED ALARM ON. PT WITH KNOWN RLE DVT, 2+ EDEMA NOTED TO THIS EXTREMITY. AROUND 2340 PT WAS AGITATED AND ATTEMPTING TO GET OUT OF BED WITHOUT ASSISTANCE AND WAS NOT REDIRECTABLE. PRN ZYPREXA WAS GIVEN, WELL 1 ON 1 SUPERVISION, REASSURANCE, AND MASSAGE. PT DID EVENTUALLY AGREE TO GET BACK INTO BED AND STATED RELIEF AFTER BACK MASSAGE. PT RESTING IN BED AT THIS TIME, RESPIRATIONS EVEN AND UNLABORED. WILL CONTINUE TO OBSERVE FOR CHANGES
[2021-09-04 04:47] VITALS: BP 112/89
[2021-09-04 05:25] LABS: HEMATOCRIT 34.5 % (42.0-52.0); WBC 5.6 thou/uL (4.0-11.0)
[2021-09-04 05:27] LABS: MCH 22.5 pg (26.0-34.0); MCHC 29.1 g/dL (28.0-37.0); MCV 77.5 fL (80.0-100.0); RBC 4.45 mil/uL (4.50-6.00)
[2021-09-04 06:01] LABS: CREATININE 2.4 mg/dL (0.7-1.3); POTASSIUM 3.8 mmol/L (3.5-5.1)
[2021-09-04 07:26] VITALS: BP 115/86
[2021-09-04 11:26] VITALS: BP 102/81
--- NOTE | 2021-09-04 13:13 | NUR ---
INITIAL ASSESSMENT: KARINA reviewed chart and spoke with nursing and attending physician. Pt was admitted from home due to weakness/dehydration/DVT. Pt with chest mass. Pt with hx of CKD, HTN, CHF. EF of 10%. Pt was on 5N for inpt acute rehab in March of this year. SW met with pt at bedside. Pt is alert. SW met with pt while he was eating his lunch. Pt would not answer any questions. Psych consulted and statest hat pt does not have the capacity to make decisions. KARINA was able to located a healthcare DPOA document, which names Joel Vasquez ([phone]) as his DPOA. Valeriy Barriga and his pt's mother, Regine Dang, are listed as alternates. KARINA left voice message for Joel and also for Regine. DPOA document was completed in [address] [facility]. Per chart, pt has been living at home with his Mother. Pt is not able to return to her home at time of discharge. Pt has used HH in the past. Pt's PCP is listed as Dr. Rosamaria Tellez. DPOA ppwk placed on pt's chart. KARINA updated attending physician and pt's nurse. KARINA is following to assist as needed with discharge planning.
[2021-09-04 15:28] VITALS: BP 114/93
--- NOTE | 2021-09-04 18:37 | NUR ---
PT ALERT AND ORIENTED X 4. PT IS CONFUSED, AND IRRITABLE. PT DENIES PAIN. PT NON COMPLIANT WITH MEDICATIONS AT TIMES. PT DENIES NEEDS AT THE MOMENT, WILL CONTINUE TO MONITOR.
[2021-09-04 19:49] VITALS: BP 107/83
--- NOTE | 2021-09-05 00:21 | HC ---
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 This was a new finding as his chest x-ray was clear one month prior to this. It was recommended that he complete several weeks course of antibiotic therapy followed by x-rays after completion of his treatment. It was also recommended that he have a followup CT scan in 2-3 months. The patient did not comply with these recommendations. He returned on 09/02/2021 to the Emergency Room due to generalized weakness and chronic pain. He has been in and out of various Emergency Rooms with atypical chest pain. He has been noncompliant with any followup as was noted this hospitalization where he refused to have a CAT scan performed today. Denies any fever, chills, or sweats. ____ tangential in his ability to respond to questions of his history. He has had minimal cough. Denies any hemoptysis. Denies any headache. He has had intermittent episodes of diarrhea, which he states are now resolved. REVIEW OF SYSTEMS: A 14-point review was negative other than what has been described above. He does report, however, that he has had some back pain, but then talks about chest pain and is very hard to pin him down on any specifics. He reports one COVID vaccination of the series. Lives with his mother. Denies any other travel or HIV risk factors. PAST MEDICAL HISTORY: Cavitary lung lesion on the right, coronary artery disease, PA, cardiac arrest, congestive heart failure, paroxysmal atrial fibrillation, hypertension, hyperlipidemia, stroke, chronic kidney disease, fibromyalgia, chronic pain syndrome, and noncompliance with medical recommendations. ALLERGIES: None known. MEDICATIONS: As noted on his MAR, which were reviewed. FAMILY HISTORY: Negative for tuberculosis. SOCIAL HISTORY: Denies any tobacco or alcohol use. [facility] [address] [place] [address] CONSULTATION Name: PAM DEGROOT Room #: 363-P [facility] IN .R.#: [id number] Admission: 09/02/21 Attend Phys: Frankie Espinoza MD Discharge: Date of : 67 Report #: [id number] PHYSICAL EXAMINATION: GENERAL: He is afebrile, hemodynamically stable. He was alert and cooperative, but weak and very thin. He was tangential and difficult to converse in logical fashion. SKIN: With several scars to his lower extremities. No active lesions. HEENT: Eyes without scleral icterus. Mouth without mucositis. NECK: Supple. LUNGS: Coarse breath sounds heard in the right mid posterior chest. No consolidation. HEART: Regular, without murmur, gallop or rub. ABDOMEN: Soft and nontender with no hepatosplenomegaly or mass. GENITAL AND RECTAL: Not performed. BACK: Nontender. NEUROLOGIC: Strength in the upper and lower extremities within normal limits and symmetric. Cranial nerves intact. Mood, no anxiety or depression. LABORATORY DATA: Reviewed. IMAGING: Chest x-ray reviewed. MICROBIOLOGY: Reviewed. IMPRESSION: A 56-year-old with pulmonary nodules right lung and nonocclusive deep venous thrombosis in the setting of dehydration, acute kidney injury, anemia, and lactic acidosis. The patient also has underlying coronary artery disease, previous stroke, chronic pain syndrome, and medical noncompliance. Source and that cause of his pulmonary chest x-ray shows large density involving the right lower lobe. I am suspecting may be extension from his previous findings in March. Malignancy would be considered in this situation. Other consideration would be granulomatous disease and again aspiration. RECOMMENDATION: We will continue antibiotic coverage and attempt to pursue further imaging. If confirmed that he has extension of his cavitary disease, would pursue tissue sampling. <ELECTRONICALLY SIGNED> By: Zach Almeida MD 09/05/21 0021 [id number] Zach Almeida MD /nt
[2021-09-05 04:36] VITALS: BP 119/91
[2021-09-05 05:48] LABS: HEMATOCRIT 32.3 % (42.0-52.0); HEMOGLOBIN 9.2 gm/dL (14.0-18.0); MCH 22.9 pg (26.0-34.0); MCHC 28.6 g/dL (28.0-37.0); MCV 79.9 fL (80.0-100.0); RBC 4.04 mil/uL (4.50-6.00); RDW 26.1 % (10.5-14.5); WBC 6.2 thou/uL (4.0-11.0)
[2021-09-05 06:11] LABS: CALCIUM 7.8 mg/dL (8.5-10.1); CREATININE 2.4 mg/dL (0.7-1.3); POTASSIUM 4.1 mmol/L (3.5-5.1)
--- NOTE | 2021-09-05 06:50 | NUR ---
PT IS A&OX2-3 WITH CONFUSION AND DELUSIONAL THOUGHTS. HE IS UNABLE TO HOLD A COHERENT CONVERSATION WITH STAFF, RESPONDING TO HIS OWN THOUGHTS RATHER THAN ANSWERING QUESTIONS APPROPRIATELY, THOUGH HE DOES HAVE OCCASIONAL PERIODS OF LUCIDITY. HE IS IMPULSIVE AND WAS NOTED SEVERAL TIMES THROUGHOUT THE SHIFT TO ATTEMPT TO GET OUT OF BED WITHOUT ASSISTANCE. EARLY IN THE SHIFT HE WAS REFUSING TO GET BACK IN THE BED, SWINGING AT THIS NURSE, DEMANDING HIS SHOES BE PUT ON "SO I DON'T GET SICK." PRN ZYPREXA ADMINISTERED X1 WITH MODERATE EFFECT. PT DID CONTINUE TO HAVE IMPULSIVE BEHAVIOR BUT WAS MORE EASILY REDIRECTABLE THEREAFTER. WILL CONTINUE TO MONITOR FOR CHANGES
[2021-09-05 07:47] VITALS: BP 117/89
--- NOTE | 2021-09-05 11:44 | NUR ---
PT IS COMPLAINING OF CHEST PAIN MD NOTIFIED. PT TO GO DOWN TO CT TODAY, CT MACHINE GOING DOWN AT NOON FOR MAINTENANCE
--- NOTE | 2021-09-05 13:56 | EKG ---
[place] [address] [facility] [place] [address] ELECTROCARDIOGRAM REPORT Name: PAM DEGROOT Room #: 363-P ADM IN M.R.#: [id number] Admission: 09/02/21 Attend Phys: Frankie Espinoza MD Discharge: Date of : 67 Report #: [id number] [facility] Test Date: 2021-09-05 Test Time: 13:48:32 Pat Name: PAM DEGROOT Department: Room: 363 P Gender: M Shearer Operator: ASHLEY : 1965 Requested By: Frankie Espinoza Order Number: [id number] MD: Bruno Dockery Measurements Intervals [place] Rate: 69 P: OK: QRS: -47 QRSD: 143 T: 118 QT: 477 QTc: 511 Interpretive Statements Sinus rhythm Ventricular premature complex Left bundle branch block pattern Compared to ECG 09/02/2021 17:07:32 No significant change Electronically Signed On 09-05-2021 13:55:51 JOB SERVICE SPECIALIST by Bruno Dockery [email or web address] <ELECTRONICALLY SIGNED> By: Bruno Dockery MD 09/05/21 1355 1348 1348 Bruno Dockery MD /DIOGENES
--- NOTE | 2021-09-05 15:56 | NUR ---
KARINA reviewed chart and spoke with nursing and attending physician. Pt had chest CT today. Pt is on IV abx. KARINA left another voice message for both pt's DPOA, Joel Vasquez, and pt's mother, Regine Dang. Per chart, pt is not able to return to his Mother's home at discharge. Will likely need placement. KARINA updated pt's nurse and attending physician. KARINA is following to assist as needed with discharge planning.
[2021-09-05 16:20] VITALS: BP 121/88
[2021-09-05 19:17] VITALS: BP 119/85
[2021-09-06 05:04] VITALS: BP 105/86
--- NOTE | 2021-09-06 05:28 | NUR ---
PT IS ORIENTED X1-2, HAS BEEN DROWSY THIS SHIFT. PT HAS BEEN ON CONTINUOUS O2 MONITORING THROUGHOUT THE NIGHT DUE TO AN EPISODE OF DESATURATION YESTERDAY EVENING. PT STARTED THE SHIFT ON 3L/NC AND TOLERATED WELL, HAS BEEN TITRATED DOWN TO 1L AND IS MAINTAINING SATS >96%. PT CONTINUES TO BE IMPULSIVE BUT IS VERY WEAK. WILL CONTINUE TO OBSERVE FOR CHANGES
[2021-09-06 05:53] LABS: HEMATOCRIT 31.6 % (42.0-52.0); MCH 22.4 pg (26.0-34.0); RDW 25.4 % (10.5-14.5)
[2021-09-06 05:57] LABS: HEMOGLOBIN 9.2 gm/dL (14.0-18.0); MCHC 29.1 g/dL (28.0-37.0); MCV 77.2 fL (80.0-100.0); RBC 4.09 mil/uL (4.50-6.00); WBC 7.7 thou/uL (4.0-11.0)
[2021-09-06 06:41] LABS: CALCIUM 7.7 mg/dL (8.5-10.1); CREATININE 2.3 mg/dL (0.7-1.3); POTASSIUM 3.4 mmol/L (3.5-5.1)
[2021-09-06 08:02] VITALS: BP 116/82
[2021-09-06 11:55] VITALS: BP 116/89
[2021-09-06 15:18] VITALS: BP 102/81
[2021-09-06 20:18] VITALS: BP 111/82
[2021-09-07 04:00] VITALS: BP 106/53
[2021-09-07 05:54] LABS: HEMATOCRIT 32.4 % (42.0-52.0); HEMOGLOBIN 9.3 gm/dL (14.0-18.0); MCH 22.3 pg (26.0-34.0); MCHC 28.6 g/dL (28.0-37.0); MCV 77.8 fL (80.0-100.0); RBC 4.17 mil/uL (4.50-6.00); RDW 26.3 % (10.5-14.5); WBC 6.9 thou/uL (4.0-11.0)
[2021-09-07 06:18] LABS: CALCIUM 7.7 mg/dL (8.5-10.1); CREATININE 2.4 mg/dL (0.7-1.3); POTASSIUM 3.7 mmol/L (3.5-5.1)
--- NOTE | 2021-09-07 06:40 | NUR ---
PROGRESS PT ALERT BUT CONFUSED, SLEPT MOST OF SHIFT. C/O PAIN IN NOSE AND LARGE PIECE OF DRIED DEBRIS REMOVED. VSS. INCONTINENT OF URINE VOIDED X 2 THIS SHIFT. CONTINUE POC.
[2021-09-07 07:28] VITALS: BP 152/88
[2021-09-07 11:17] VITALS: BP 105/77
[2021-09-07 15:18] VITALS: BP 96/73
--- NOTE | 2021-09-07 17:56 | NUR ---
PATIENT IS ALERT AND ORIENTED X3 (PERSON PLACE AND TIME). PATIENT LUNG SOUND ARE CLEAR, AND HIS IS ON ROOM AIR. PATIENT IS CC/ TELE AND HAS BEEN SINUS 1ST DEGREE AV BLOCK AND BUNDLE BRANCH BLOCK THIS SHIFT. PATIENT HAS BEEN INCONTINENT OF BOTH BOWEL AND BLADDER THIS SHIFT. PATIENT GETS UP WITH ONE ASSSIT, WALKER, AND GAITBELT. PATIENT HAS A RED COCCYX AND OINTMENT HAS BEEN APPLIED TO HIS COCCYX. PATIENT HAS BEEN REPOSITIONED ORDERED. PATIENT HAS AN IV IN HIS LEFT FOREARM THAT IS SALINE LOCKED AND PATENT. PATIENT WILL CONTINUE TO BE MONITORED.
[2021-09-07 20:36] VITALS: BP 125/89
[2021-09-08 03:43] VITALS: BP 105/87
--- NOTE | 2021-09-08 04:30 | NUR ---
PT ALERT & ORIENTED X 3. PT HAS BEEN EXTREMELY AGITATED & IRRITABLE DURING THIS SHIFT. PT HAD MULTIPLE COMPLAINTS OF PAIN AND STATED THAT "EVERYWHERE HURTS". THIS NURSE OFFERED PAIN MEDS MULTIPLE TIMES BUT PT REFUSED. THIS NURSE WAS ABLE TO ADMINISTER OLANZAPINE PRN X2. PT THREATENED TO REMOVE IV BUT THIS NURSE REASSURED PT THAT IV WAS WORKING. IV WAS ASSESSED AND NO S&S OF INFILTRATION, EDEMA, OR ERYTHEMA NOTED. PT REFUSED AM LAB DRAW AND SEPSIS PROTOCOL WAS UNABLE TO BE COMPLETED.
[2021-09-08 07:34] VITALS: BP 111/81
[2021-09-08 09:53] LABS: HEMOGLOBIN 8.6 gm/dL (14.0-18.0)
[2021-09-08 09:55] LABS: HEMATOCRIT 30.5 % (42.0-52.0); MCH 22.2 pg (26.0-34.0); MCHC 28.3 g/dL (28.0-37.0); MCV 78.6 fL (80.0-100.0); RBC 3.88 mil/uL (4.50-6.00); RDW 26.2 % (10.5-14.5); WBC 6.1 thou/uL (4.0-11.0)
[2021-09-08 10:02] LABS: CALCIUM 7.5 mg/dL (8.5-10.1); CREATININE 2.3 mg/dL (0.7-1.3); POTASSIUM 3.7 mmol/L (3.5-5.1)
[2021-09-08 11:43] VITALS: BP 91/68
[2021-09-08 15:32] VITALS: BP 104/78
--- NOTE | 2021-09-08 17:10 | NUR ---
PATIENT IS ALERT AND ORIENTED X3 THIS SHIFT BUT IS FOREGETFUL OF HIS LIMITATIONS. PATIENT IS ON ROOM AIR. HE HAS DIMINISHED LUNG SOUNDS. PATIENT IS CC/ TELE AND HAS BEEN S.R AND S.B; 1ST DEGREE AV BLOCK, AND BUNDLE BRANCH BLOCKED THIS SHIFT. PATIENT IS INCONTINENT OF URINE FOUR TIMES THIS SHIFT. PATIENT IS UP WITH TWO ASSIST AND A GAITBELT. PATIENT HAS TO BE REMINDED MULTIPLE TIMES TO NOT TRY AND THROW HIMSELF BACKWARDS WHILE TRANSFERRING. PATIENT IS TRANSFERRED WITH TWO PEOPLE FOR PATIENTS SAFETY HE CONTINUES TO LEAN BACKWARDS WHILE TRANSFERRING. PATIENT HAS A REDDENED AREA ON HIS COCCYX THAT HAS BEEN CLEANED AND HAS CREAM APPLIED. PATIENT HAS AN IV IN HIS RIGHT FOREARM AND IT IS SALINE LOCKED AND PATENT. PATIENT WILL CONTINUE TO BE MONITORED.
[2021-09-08 19:09] VITALS: BP 97/71
--- NOTE | 2021-09-09 03:42 | NUR ---
CONTINUES TO BE AGGITATED AND PULLING AT MEDICAL TUBES AND LINES. HE IS PREVENTING TREATMENTS WHEN HE PULLS OFF TELEMETRY. HE IS SHOUTING AND GETTING OUT OF BED MULTIPLE TIMES.
[2021-09-09 07:11] LABS: HISTOPLASMA MYCELIAL-CF Negative (Neg:<1:2)
[2021-09-09 07:32] VITALS: BP 116/87
--- NOTE | 2021-09-09 11:00 | NUR ---
DR. DURON MOVED PT TO MED/SURG AND REQUEST TO 4S. CALLED HS AND GAVE HER UPDATED AND INFORMATION ABOUT HAVING PT CLOSE TO NURSE STATION. PT STATES HE IS NOT RECEIVING ANY ATTENTION FROM NURSING STAFF.
[2021-09-09 11:24] VITALS: BP 108/82
[2021-09-09 15:31] VITALS: BP 126/92
[2021-09-09 20:30] VITALS: BP 121/87
[2021-09-10 04:51] VITALS: BP 117/87
[2021-09-10 05:08] LABS: ABSOLUTE NEUTROPHILS 3.7 thou/uL (1.4-8.2); BASOPHILS 0.5 % (0.0-2.0); EOSINOPHILS 0.5 % (0.0-3.0); HEMATOCRIT 31.3 % (42.0-52.0); HEMOGLOBIN 8.9 gm/dL (14.0-18.0); LYMPHOCYTES 14.2 % (24.0-44.0); MCH 22.4 pg (26.0-34.0); MCHC 28.3 g/dL (28.0-37.0); MCV 79.2 fL (80.0-100.0); MONOCYTES 5.7 % (1.0-8.0); PLATELET COUNT 187 thou/uL (150-400); POLYS 79.1 % (36.0-66.0); RBC 3.95 mil/uL (4.50-6.00); RDW 26.5 % (10.5-14.5); WBC 5.8 thou/uL (4.0-11.0)
[2021-09-10 05:14] LABS: ALBUMIN 2.1 g/dL (3.4-5.0); CALCIUM 7.7 mg/dL (8.5-10.1); CREATININE 2.2 mg/dL (0.7-1.3); PHOSPHORUS 3.5 mg/dL (2.5-4.9); POTASSIUM 3.9 mmol/L (3.5-5.1); TOTAL BILIRUBIN 2.4 mg/dL (0.2-1.0)
[2021-09-10 07:32] VITALS: BP 113/82
--- NOTE | 2021-09-10 10:53 | NUR ---
Assess for length of stay. Chart reviewed and note consult today for Dr Velazquez for goals of care. Code status currently listed as chemical code only. Will follow plan of care and see again in 1-2 days
--- NOTE | 2021-09-10 12:28 | NUR ---
KARINA reviewed chart and spoke with nursing and attending physician. Pt is not progressing towards goals for discharge. Palliative care consult ordered to discuss code status/treatment goals. KARINA met with pt and mother, Regine, at bedside. Pt did not open eyes during conversation. Pt has been taking off his O2 and not eating/drinking well. Conference call with attending physician, pt's madhudtrAnna, who is a nurse. Regine requested that Anna (stepdtr) be called to provide updated. Pt's two nurses also present for call. Pt's , Anna, is working out of town. Pt and are . DPOA document reviewed with pt's mother. DPOA-Joel Vasquez is pt's [id number]. Kole Barriga, listed as first alternate, is pt's harvest contractor. Second alternate is pt's mother. Pt's , Anna's name is written on the document as well. KARINA discussed that calls have been left for Joel and have not been returned. Pt's stepdtr, Anna, will reach out to her mother and Joel (her grand-father) to provide update and discuss recommendation for DNR and palliative care. Requested that Joel call the nurses station on 3W to assist with decision making or to state he does not wish to act as pt's DPOA. Contact info for 3W provided to pt's gabrielarAnna. KARINA discussed plan for palliative care CREAM RIPENER to meet with pt's family to discuss plan of care/discharge disposition, then discharge planning can be initiated. Provided LTC facility list to pt's mother for review. KARINA explained that pt will not be able to receive therapy, as pt only has Medicaid. Pt's mother verbalized understanding and asks if pt would qualify for Medicare now. KARINA sent message to [facility] for review. Pt's mother states that she would want to give pt a chance to improve, if that is a possiblity. Pt's mother is agreeable with palliative care approach if recommended. Family may not be ready for hospice. KARINA discussed case with Palliative Care CREAM RIPENER. KARINA placed call to pt's first alternate DPOA, Kole Barriga ([phone]). Introduced role of SW to Kole. Discussed that pt has listed Kole as first alternate DPOA for healthcare decisions and reviewed what is needed from pt's DPOA--making healthcare decisions regarding code status, plan of care and discharge planning. Kole states that he does not wish to act as pt's DPOA at this time and would defer decisions to pt's mother, Regine. Kole states that if a written document is needed to enact pt's mother as pt's DPOA, he will be able to provide a document. KARINA discussed case with Director of Case Mgmt, who reached out to risk mgmt. Awaiting input from pt's DPOA, Joel Vasquez, at this time. KARINA is following to assist as needed with discharge planning.
[2021-09-10 15:06] LABS: ANISOCYTOSIS 2+; HYPOCHROMASIA 2+; SCHISTOCYTES 1+
[2021-09-10 16:04] VITALS: BP 103/74
[2021-09-10 19:43] VITALS: BP 98/70
--- NOTE | 2021-09-10 19:53 | NUR ---
PATIENT HAS BEEN ALERT AND ORIENTED TO PERSON THIS SHIFT. HE IS FORGETFUL. PATIENT HAS BEEN INCREASINGLY TIRED THIS SHIFT. PATIENT FEELS SHORT OF BREATH. PATIENT IS ON 1L OF OXYGEN AND HIS OXYGEN SATURATIONS HAVE BEEN 100%. PATIETNT WAS PLACED BACK ON TELE MONITORING. PATIENT IS RUNNING SINUS RHYTHM WITH PAC'S. PATIENT REPORTS THAT HE WAS EXTREMELY TIRED AND SHORT OF BREATH FOLLOWING ACTIVITIES WITH PHYSICAL THERAPY THIS AFTERNOON. PATIENT IS INCONTINENT OF BOTH BOWEL AND BLADDER. PATIENT GETS UP WITH ONE ASSIST. PATIENT ALSO USES HIS URINAL. PATIENT HAS OINTMENT APPLIED TO HIS BOTTOM. PATIENT HAS HAD A POOR APPETITE THIS SHIFT. PATIENT HAS AN IV IN HIS LEFT FOREARM. IT IS PATENT. PATIENT WILL CONTINUE TO BE MONITORED.
[2021-09-11 03:14] VITALS: BP 108/76
--- NOTE | 2021-09-11 04:25 | NUR ---
Patients' progress towards outcome goals slow. Drowsy, easily awakened, less irritable tonight allowed cares like turning, pericare, meds and lab draw. Incontinent of bladder. Yells when turned but denies need for pain medication. Right leg swelling. High fall risks, fall precautions in place.
[2021-09-11 08:00] VITALS: BP 111/78
[2021-09-11] MEDS ORDERED: MORPHINE S100 MG/51 SUBLING (11:12)
[2021-09-11] MEDS ORDERED: HALOPERIDOL2 MG/1 ML PO (11:13)
[2021-09-11] MEDS ORDERED: LORAZEPAM I2 MG/1 M2 SUBLING (11:13)
--- NOTE | 2021-09-11 11:49 | NUR ---
D/C OT AT THIS TIME PT NOW ON COMFORT CARE.
--- NOTE | 2021-09-11 14:31 | NUR ---
DISCHARGE NOTE: KARINA reviewed chart and spoke with nursing and attending physician. Pt is medically stable for discharge today. KARINA spoke with Leticia in admissions at [facility], who states they are able to accept pt as LTC with hospice. Leticia had spoken with pt's DPOA, Joel, regarding hospice providers. Joel agreeable with referral to [facility]. KARINA faxed discharge ppwk to [facility]. Confirmed info was received. [facility] has forwarded all info to [facility]. KARINA met with pt an his mother, Regine, at bedside. Provided update to Regine, who is agreeable with discharge plan. Pt's mother states she has updated family. Pt's mother very tearful during conversation. Emotional support provided. KARINA explained referral to [place] and that pt will be discharged later today. Pt's mother verbalized understanding. Pt needing ambulance transportation. KARINA placed call to [facility]. Trip # [id number] provided. Requested ambulance transportation around 1600. KARINA updated Leticia at [facility]. KARINA received call from Haleigh at [facility], who came to [facility] to meet with pt and family. Outside the Hospital DNR form signed by physician on pt's chart. Pt's mother to sign DNR form. KARINA contacted [facility] to confirm ambualnce transportation. Chart copy requested. Nursing provided with number to call report. KARINA updated palliative care RN. No additional SW needs identified at this time, but is available to assist should needs arise.
--- NOTE | 2021-09-11 17:09 | NUR ---
PT DISCHARGED TO [facility]/ [facility]...EMS PICKED PATIENT UP AND MOTHER WILL MEET HIM AT FACILITY.
== END 2021-09-11 17:09 | disposition hospice, home (50) | DRG 177 ==
LOC: ER 14:12 → 3W 16:23 → EROBS 16:23 → 3W 17:32
PROVIDERS: Emergency Medicine; Internal Medicine; Specialist; ADMIT Hospitalist; ATTEND Hospitalist
DX: J69.0 Pneumonitis due to inhalation of food and vomit (principal); I50.23 Acute on chronic systolic (congestive) heart failure; G93.41 Metabolic encephalopathy; E43 Unspecified severe protein-calorie malnutrition; J96.01 Acute respiratory failure with hypoxia; N17.9 Acute kidney failure, unspecified; N18.4 Chronic kidney disease, stage 4 (severe); E87.0 Hyperosmolality and hypernatremia; I13.0 Hypertensive heart and chronic kidney disease with heart failure and stage 1 through stage 4 chronic kidney disease, or unspecified chronic kidney disease; E86.0 Dehydration; R91.8 Other nonspecific abnormal finding of lung field; E78.5 Hyperlipidemia, unspecified; I48.0 Paroxysmal atrial fibrillation; I25.5 Ischemic cardiomyopathy; G89.4 Chronic pain syndrome; I25.10 Atherosclerotic heart disease of native coronary artery without angina pectoris; D64.9 Anemia, unspecified; R41.0 Disorientation, unspecified; Z20.822 Contact with and (suspected) exposure to COVID-19; I34.0 Nonrheumatic mitral (valve) insufficiency; M79.7 Fibromyalgia; Z66 Do not resuscitate; Z86.73 Personal history of transient ischemic attack (TIA), and cerebral infarction without residual deficits; I25.2 Old myocardial infarction; Z91.14 Patient's other noncompliance with medication regimen; Z95.5 Presence of coronary angioplasty implant and graft; Z28.21 Immunization not carried out because of patient refusal
CPT/HCPCS: 10080; 10879